=== PATIENT | male | born 1975 | race Caucasian/White ===

== ENCOUNTER 2020-06-07 12:16 | Emergency (ER) | payer MEDICAID ==
[~2020-06-07] VITALS: Ht 185.4 cm; Wt 77.1 kg
--- NOTE | 2020-06-07 12:30 | NUR ---
ED Nurse Note: pT AMBUALTED TO ED C/O LEFT LEG PAIN X 4 DAYS AGO. LEFT LEG APPEARS ERTHYMOUS AND ULCER PRESENT WITH DRAINAGE.
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
[2020-06-07] MEDS ORDERED: Vancomycin 1 GM in NS 275 ML IVPB ONE (12:45)
[2020-06-07] MEDS ORDERED: HYDROcodone/Acetamin 5/325 tab ORAL ONE (12:45)
--- NOTE | 2020-06-07 13:26 | NUR ---
ED Nurse Note: ATTEMPTED TO INSERT IV ACCES ON PATIENT WITH ULTRA SOUND IV GUIDED ACCESS PER PT.'S REQUEST BUT PT. REFUSED AT THE VERY MOMENT Addendum: 06/07/20 at 1327 by LACEY ED Nurse Note: PT. REQUESTED EJ INSTEAD. ANGIE MADE AWARE
--- NOTE | 2020-06-07 13:43 | NUR ---
ED Nurse Note: tax lawyer at bedside
--- NOTE | 2020-06-07 13:47 | NUR ---
ED Nurse Note: AIRCRAFT POWERTRAIN REPAIRER AT THE BEDSIDE FOR THE BLOOD DRAW
--- NOTE | 2020-06-07 13:50 | NUR ---
ED Nurse Note: blood obtained by phlebotomy, per ermd dc vanco order and give 300mg clindaymycin PO Addendum: 06/07/20 at 1352 by PDELEON ED Nurse Note: blood obtained by phlebotomy, per ermd dc vanco order and give 300mg clindamycin PO
[2020-06-07] MEDS ORDERED: Clindamycin 150mg cap ONE (13:54)
[2020-06-07 13:56] LABS: BASOPHILS % (AUTO) 0.5 % (0.0-2.0); EOSINOPHILS % (AUTO) 0.3 % (0.0-3.0); HEMATOCRIT 38.4 % (42.0-52.0); HEMOGLOBIN 12.5 G/DL (14.2-18.0); LYMPHOCYTES % (AUTO) 8.4 % (20.0-45.0); MEAN CORPUSCULAR VOLUME 84 FL (80-99); MONOCYTES % (AUTO) 6.8 % (1.0-10.0); NEUTROPHILS % (AUTO) 83.9 % (45.0-75.0); PLATELET COUNT 311 K/UL (150-450); RED BLOOD COUNT 4.55 M/UL (4.70-6.10); RED CELL DISTRIBUTION WIDTH 11.9 % (11.6-14.8); WHITE BLOOD COUNT 13.3 K/UL (4.8-10.8)
[2020-06-07] MEDS ORDERED: Clindamycin 150mg cap ORAL SCH (14:00)
[2020-06-07 14:12] LABS: ANION GAP 6 mmol/L (5-15); BLOOD UREA NITROGEN 11 mg/dL (7-18); CALCIUM 8.7 MG/DL (8.5-10.1); CARBON DIOXIDE 32 MMOL/L (21-32); CHLORIDE 101 MMOL/L (98-107); POTASSIUM 3.4 MMOL/L (3.5-5.1); SODIUM 139 MMOL/L (136-145)
--- NOTE | 2020-06-07 14:29 | Diagnostic Imaging Report ---
Indication: Left leg pain, redness, and swelling Technique: Grayscale and duplex images of the left lower extremity veins Comparison: None Findings: On the left, grayscale and duplex images demonstrate no evidence of intraluminal thrombus. Normal phasic Doppler waveforms, demonstrating normal augmentation response and no evidence of valvular insufficiency. Greater saphenous vein(s) and tibial veins are patent. Normal compressibility. Impression: Negative for evidence of lower extremity deep venous thrombosis on the left
[2020-06-07] MEDS ORDERED: Clindamycin 150mg cap ORAL ONE (14:45)
[2020-06-07] MEDS ORDERED: MUPIROCIN22 GM TOPIC (14:47)
[2020-06-07] MEDS ORDERED: CLINDAMYCIN HC300 MG ORAL (14:47)
[2020-06-07] MEDS ORDERED: ACETAMINOPHEN-1 EAC1 ORAL (14:48)
--- NOTE | 2020-06-07 14:49 | NUR ---
ER DISCHARGE NOTE: Patient is cleared to be discharged per ERMD, pt is aox4, on room air, with stable vital signs. pt was given dc and prescription instructions, pt was able to verbalize understanding, pt id band removed. pt is able to ambulate with steady gait. pt took all belongings.
[2020-06-07 14:51] VITALS: BP 133/76
== END 2020-06-07 14:49 | disposition home or self-care (01) ==
LOC: EMR 12:50
DX: L03.116 Cellulitis of left lower limb (principal)
CPT/HCPCS: 36415; 80048; 85025; 85610; 85730; 93971; Z7502; 99284